=== PATIENT | female | born 2005 | race Caucasian/White ===

== ENCOUNTER 2024-07-04 14:48 | Outpatient (CLI) | payer BC, SELFPAY | END 2024-07-04 14:49 | disposition home or self-care (01) | PROVIDERS: PCP Physician Assistant Medical; Visit Provider Physician Assistant Medical | DX: L70.9 Acne, unspecified; Z79.3 Long term (current) use of hormonal contraceptives; Z00.01 Encounter for general adult medical examination with abnormal findings | CPT/HCPCS: 80053; 80061; 86038; 86039 ==